=== PATIENT | female | born 1985 | race Caucasian/White ===

== ENCOUNTER 2017-11-25 07:28 | Inpatient (IN) | payer OTHER ==
[~2017-11-25] VITALS: Ht 177.8 cm; Wt 87.0 kg
[2017-11-25] MEDS: LACTATED RINGERS 1,000 ML IV SCH (04:45)
[2017-11-25 21:15] VITALS: BP 117/79
[2017-11-25] MEDS ORDERED: OXYTOCIN 30U/ 0.9% NaCL 500ML 500 ML IV PRN (21:20)
[2017-11-25] MEDS ORDERED: OXYTOCIN 30U/ 0.9% NaCL 500ML 500 ML IV ONE (21:20)
[2017-11-25] MEDS ORDERED: MISOPROSTOL 25 MCG TABLET ONE (21:24)
[2017-11-25] MEDS ORDERED: NEWBORN KIT ONE (21:25)
[2017-11-25] MEDS ORDERED: OXYTOCIN 30U/ 0.9% NaCL 500ML 500 ML ONE (21:25)
[2017-11-25] MEDS ORDERED: FENTANYL PF 100 MCG/2ML IV PRN (21:30)
[2017-11-25] MEDS ORDERED: ONDANSETRON ODT 4 MG PO PRN (21:30)
[2017-11-25] MEDS ORDERED: TERBUTALINE 1 MG/ML, 1ML IVPush PRN (21:30)
[2017-11-25] MEDS ORDERED: CALCIUM CARBONATE 500 MG TAB.CHEW PO PRN (21:30)
[2017-11-25] MEDS ORDERED: FENTANYL PF 100 MCG/2ML IVPush PRN (21:30)
[2017-11-25] MEDS ORDERED: PENICILLIN GK 5,000,000 UNITS in SODIUM CHLORIDE 0.9% 100 ML IVPB ONE (21:30)
[2017-11-25] MEDS: MISOPROSTOL 25 MCG TABLET VG PRN (21:30)
[2017-11-25] MEDS ORDERED: ONDANSETRON 2MG/ML, 2ML IVPush PRN (21:30)
[2017-11-25 21:43] LABS: BASOPHILS # (AUTO) 0.08 x10^3/uL (0-0.1); BASOPHILS % (AUTO) 1 % (0-1); EOSINOPHILS # (AUTO) 0.11 x10^3/uL (0-0.4); EOSINOPHILS % (AUTO) 1 % (1-7); LYMPHOCYTES # (AUTO) 2.36 x10^3/uL (1-3.4); LYMPHOCYTES % (AUTO) 17 % (22-44); MD NO; MEAN CORPUSCULAR HEMOGLOBIN 32.6 pg (27.0-34.8); MEAN CORPUSCULAR HGB CONC 34.4 g/dL (32.4-35.8); MEAN CORPUSCULAR VOLUME 94.7 fL (80-100); MEAN PLATELET VOLUME 7.9 fL (7.4-10.4); MONOCYTES # (AUTO) 1.02 x10^3/uL (0.2-0.8); MONOCYTES % (AUTO) 7 % (2-9); NEUTROPHILS # (AUTO) 10.51 x10^3/uL (1.8-6.8); NEUTROPHILS % (AUTO) 75 % (42-75); PLATELET COUNT 227 x10^3/uL (130-400); RED BLOOD COUNT 3.95 x10^6/uL (3.82-5.3); RED CELL DISTRIBUTION WIDTH 13.4 % (9.6-15.2)
[2017-11-26] MEDS ORDERED: MISOPROSTOL 25 MCG TABLET ONE (01:26)
[2017-11-26] MEDS: MISOPROSTOL 25 MCG TABLET VG PRN (01:30)
[2017-11-26] MEDS: D5%-LACTATED RINGERS 1,000 ML IV SCH ×3 (05:20→13:20)
[2017-11-26] MEDS: PENICILLIN GK 2,500,000 UNITS in DEXTROSE 5% 100 ML IVPB SCH ×4 (05:30→13:30)
[2017-11-26] MEDS: LACTATED RINGERS 1,000 ML IV SCH ×2 (07:28→09:50)
[2017-11-26] MEDS ORDERED: FENTANYL PF 100 MCG/2ML ONE (07:31)
[2017-11-26] MEDS ORDERED: BUPIVACAINE 0.25% ONE (07:32)
[2017-11-26] MEDS ORDERED: FENTANYL/BUPIV./NS/PF 250 ML EPIDCONT ONE (07:32)
[2017-11-26] MEDS ORDERED: ONDANSETRON 2MG/ML, 2ML IV PRN (08:30)
[2017-11-26] MEDS ORDERED: CALCIUM CARBONATE 500 MG TAB.CHEW PO PRN (08:30)
[2017-11-26] MEDS ORDERED: RHOGAM FROM BLOOD BANK 1 NOTE EA IM/IV ONE (08:30)
[2017-11-26] MEDS ORDERED: DIPH,PERTUSS(ACELL),TET VAC/PF NC IM-VACC PRN (08:30)
[2017-11-26] MEDS ORDERED: OXYcodone/APAP 5/325MG TABLET PO PRN ×2 (08:30)
[2017-11-26] MEDS ORDERED: MISOPROSTOL 200 MCG TABLET PR PRN (08:30)
[2017-11-26] MEDS ORDERED: ACETAMINOPHEN 325 MG TABLET PO PRN ×2 (08:30)
[2017-11-26] MEDS ORDERED: MAGNESIUM HYDROXIDE 8%, 30ML UDC PO PRN (08:30)
[2017-11-26] MEDS ORDERED: MEASLES,MUMPS&RUBELLA VACC/PF 0.5 ML SQ-VACC PRN (08:30)
[2017-11-26] MEDS ORDERED: TERBUTALINE 1 MG/ML, 1ML ONE (08:47)
[2017-11-26] MEDS: PRENATAL VIT/IRON/FA 1 EACH TABLET PO SCH (09:00)
[2017-11-26] MEDS ORDERED: LACTATED RINGERS 1,000 ML IV SCH (09:31)
[2017-11-26] MEDS ORDERED: FENTANYL/BUPIV./NS/PF 250 ML EPIDCONT SCH (09:31)
[2017-11-26] MEDS ORDERED: EPHEDRINE 50 MG/ML, 1ML IVPush PRN (10:00)
[2017-11-26] MEDS ORDERED: LACTATED RINGERS 1,000 ML IVBOLUS PRN (10:00)
[2017-11-26] MEDS ORDERED: ONDANSETRON 2MG/ML, 2ML IVPush PRN (10:00)
[2017-11-26] MEDS ORDERED: IBUPROFEN 600 MG TABLET ONE (13:08)
[2017-11-26] MEDS: IBUPROFEN 600 MG TABLET PO PRN ×2 (13:10→22:51)
[2017-11-26] MEDS: OXYTOCIN 30U/ 0.9% NaCL 500ML 500 ML IV SCH ×2 (15:14→18:14)
[2017-11-26 16:15] VITALS: BP 110/68
[2017-11-26 19:50] VITALS: BP 114/67
[2017-11-26 20:04] LABS: MEAN CORPUSCULAR HEMOGLOBIN 32.9 pg (27.0-34.8); MEAN CORPUSCULAR HGB CONC 34.7 g/dL (32.4-35.8); MEAN CORPUSCULAR VOLUME 94.8 fL (80-100); MEAN PLATELET VOLUME 7.9 fL (7.4-10.4); PLATELET COUNT 197 x10^3/uL (130-400); RED CELL DISTRIBUTION WIDTH 12.9 % (9.6-15.2)
[2017-11-26 20:21] LABS: BASOPHILS # (AUTO) 0.07 x10^3/uL (0-0.1); BASOPHILS % (AUTO) 0 % (0-1); EOSINOPHILS # (AUTO) 0.05 x10^3/uL (0-0.4); EOSINOPHILS % (AUTO) 0 % (1-7); LYMPHOCYTES # (AUTO) 1.66 x10^3/uL (1-3.4); LYMPHOCYTES % (AUTO) 9 % (22-44); MD SCAN; MONOCYTES # (AUTO) 1.29 x10^3/uL (0.2-0.8); MONOCYTES % (AUTO) 7 % (2-9); NEUTROPHILS # (AUTO) 16.33 x10^3/uL (1.8-6.8); NEUTROPHILS % (AUTO) 84 % (42-75)
[2017-11-26] MEDS: DOCUSATE 100 MG CAPSULE PO PRN (22:51)
[2017-11-27 00:10] VITALS: BP 120/80
[2017-11-27] MEDS: OXYTOCIN 30U/ 0.9% NaCL 500ML 500 ML IV SCH (04:14)
[2017-11-27 04:30] VITALS: BP 109/63
[2017-11-27] MEDS: IBUPROFEN 600 MG TABLET PO PRN (06:09)
[2017-11-27] MEDS: DOCUSATE 100 MG CAPSULE PO PRN (08:03)
[2017-11-27] MEDS: PRENATAL VIT/IRON/FA 1 EACH TABLET PO SCH (08:06)
[2017-11-27 08:28] VITALS: BP 99/70
[2017-11-27] MEDS ORDERED: IBUP-1222 PO (08:56)
[2017-11-27] MEDS ORDERED: PREN1TAB60 PO (08:56)
== END 2017-11-27 12:09 | disposition home or self-care (01) | DRG 775 ==
LOC: LDIP 21:19 → 2NW 11-26 16:06
PROVIDERS: ADMIT Obstetrics & Gynecology; ATTEND Obstetrics & Gynecology
PROC: 10E0XZZ Delivery of Products of Conception, External Approach (ICD-10-PCS; principal; 2017-11-26)
PROC: 0KQM0ZZ Repair Perineum Muscle, Open Approach (ICD-10-PCS; 2017-11-26)
PROC: 10H07YZ Insertion of Other Device into Products of Conception, Via Natural or Artificial Opening (ICD-10-PCS; 2017-11-26)
PROC: 3E0R3BZ Introduction of Anesthetic Agent into Spinal Canal, Percutaneous Approach (ICD-10-PCS; 2017-11-26)
PROC: 00HU33Z Insertion of Infusion Device into Spinal Canal, Percutaneous Approach (ICD-10-PCS; 2017-11-26)
PROC: 10907ZC Drainage of Amniotic Fluid, Therapeutic from Products of Conception, Via Natural or Artificial Opening (ICD-10-PCS; 2017-11-26)
PROC: 3E0P7VZ Introduction of Hormone into Female Reproductive, Via Natural or Artificial Opening (ICD-10-PCS; 2017-11-26)
DX: O76 Abnormality in fetal heart rate and rhythm complicating labor and delivery (principal); O69.81X0 Labor and delivery complicated by cord around neck, without compression, not applicable or unspecified; O70.1 Second degree perineal laceration during delivery; O99.824 Streptococcus B carrier state complicating childbirth; Z37.0 Single live birth; Z3A.40 40 weeks gestation of pregnancy
CPT/HCPCS: 36415; 82803; 85025; 86850; 86900; J2540; J2590; J3010; J3105; J7120; J7121

== ENCOUNTER 2020-05-21 11:00 | Day surgery (SDC) | payer OTHER ==
[~2020-05-21] VITALS: Ht 177.8 cm; Wt 74.1 kg
[~2020-05-21 11:00] MED LIST: IBUP-1222 PO; PREN1TAB60 PO
[2020-05-21] MEDS ORDERED: CHLORHEXIDINE 15 ML UDC MM STA (11:34)
[2020-05-21] MEDS ORDERED: LACTATED RINGERS 1,000 ML IV SCH (11:36)
[2020-05-21] MEDS ORDERED: CHLORHEXIDINE 15 ML UDC ONE (11:36)
[2020-05-21 11:37] VITALS: BP 120/74
[2020-05-21] MEDS ORDERED: BUPIVACAINE/PF 0.5% ONE (11:38)
[2020-05-21] MEDS ORDERED: EPINEPHRINE 1 MG/ML, 1ML ONE (11:38)
[2020-05-21] MEDS ORDERED: FENTANYL PF 100 MCG/2ML ONE ×3 (13:18→14:53)
[2020-05-21] MEDS ORDERED: MIDAZOLAM 1 MG/ML, 2ML ONE (13:18)
[2020-05-21] MEDS ORDERED: DEXAMETHASONE 4 MG/ML, 1ML ONE (14:00)
[2020-05-21] MEDS ORDERED: ONDANSETRON 2MG/ML, 2ML ONE (14:00)
[2020-05-21] MEDS ORDERED: CEFAZOLIN 1,000 MG ONE (14:00)
[2020-05-21] MEDS ORDERED: KETOROLAC 30 MG/1 ML ONE (14:00)
[2020-05-21] MEDS ORDERED: PROPOFOL 10 MG/ML, 20ML ONE (14:00)
[2020-05-21] MEDS ORDERED: HYDROmorphone 1 MG/ML, 1ML INJ IVPush PRN (15:00)
[2020-05-21] MEDS ORDERED: OXYcodone 5 MG/5 ML ORAL.SOL UDC PO PRN (15:00)
[2020-05-21] MEDS ORDERED: ONDANSETRON 2MG/ML, 2ML IVPush PRN (15:00)
[2020-05-21] MEDS ORDERED: ACETAMINOPHEN 325 MG TABLET PO PRN (15:00)
[2020-05-21] MEDS ORDERED: FENTANYL PF 100 MCG/2ML IV PRN (15:00)
[2020-05-21] MEDS ORDERED: MEPERIDINE/PF 25MG/ML,1ML ONE (15:25)
[2020-05-21] MEDS ORDERED: MEPERIDINE/PF 25MG/0.5ML IVPush PRN (15:30)
[2020-05-21] MEDS ORDERED: OXYcodone 5 MG/5 ML ORAL.SOL UDC ONE (15:47)
== END 2020-05-21 17:15 | disposition home or self-care (01) ==
LOC: OUT 11:00
PROVIDERS: ATTEND Podiatrist Foot & Ankle Surgery
DX: M21.611 Bunion of right foot (principal); Z20.828 Contact with and (suspected) exposure to other viral communicable diseases; M21.612 Bunion of left foot; Z87.891 Personal history of nicotine dependence
CPT/HCPCS: 28297; 36415; 81025; 87635; C1713; J0171; J0690; J1100; J1885; J2175; J2250; J2405; J2704; J3010; J7120